=== PATIENT | female | born 1930 | race Caucasian/White ===

== ENCOUNTER → 2016-12-28 | Outpatient (REF) | payer MEDICARE ==
[2016-12-28 13:19] LABS: TOTAL PROTEIN 7.5 GM/DL (6.4-8.2)
[2016-12-29 10:15] LABS: FREE KAPPA LIGHT CHAINS SERUM 42.31 mg/L (3.30-19.40); FREE LAMBDA LIGHT CHAINS SERUM 19.47 mg/L (5.71-26.30); KAPPA/LAMBDA RATIO SERUM 2.17 (0.26-1.65)
[2016-12-30 10:05] LABS: ALBUMIN 3.93 GM/DL (3.29-5.55); ALBUMIN % 52.4 % (55.8-66.1); GAMMA GLOBULIN % 24.1 % (11.1-18.8)
== END ==
LOC: M LAB REF 12:33
PROVIDERS: ATTEND Internal Medicine Medical Oncology
DX: D47.2 Monoclonal gammopathy (principal)

== ENCOUNTER → 2017-01-11 | Outpatient (REF) | payer MEDICARE | LOC: M LAB REF 16:26 | PROVIDERS: ATTEND Internal Medicine | DX: M10.9 Gout, unspecified (principal) ==

== ENCOUNTER → 2017-05-16 | Outpatient (REF) | payer MEDICARE | LOC: M LAB REF 18:14 | PROVIDERS: ATTEND Internal Medicine | DX: M10.9 Gout, unspecified (principal) ==

== ENCOUNTER → 2017-06-16 | Outpatient (REF) | payer MEDICARE | LOC: M LAB REF 14:11 | PROVIDERS: ATTEND Internal Medicine | DX: N39.0 Urinary tract infection, site not specified (principal) ==

== ENCOUNTER → 2017-06-30 | Outpatient (REF) | payer MEDICARE ==
[2017-06-30 14:32] LABS: IMMUNOGLOBULIN G 1830 MG/DL (681-1648); IMMUNOGLOBULIN M 104 MG/DL (40-230); TOTAL PROTEIN 7.2 GM/DL (6.4-8.2)
[2017-07-03 00:09] LABS: FREE KAPPA LIGHT CHAINS SERUM 24.3 mg/L (3.3-19.4); FREE LAMBDA LIGHT CHAINS SERUM 13.3 mg/L (5.7-26.3); KAPPA/LAMBDA RATIO SERUM 1.83 (0.26-1.65)
[2017-07-05 11:56] LABS: ALBUMIN 3.82 GM/DL (3.29-5.55); GAMMA GLOBULIN % 24.2 % (11.1-18.8)
== END ==
LOC: M LAB REF 12:38
PROVIDERS: ATTEND Internal Medicine Medical Oncology
DX: N76.0 Acute vaginitis (principal)

== ENCOUNTER → 2017-07-13 | Outpatient (REF) | payer MEDICARE ==
[2017-07-14 13:34] LABS: PERCENT SATURATION 18.6 % (13.2-45.0)
== END ==
LOC: M LAB REF 12:15
PROVIDERS: ATTEND Internal Medicine
DX: D64.9 Anemia, unspecified (principal)

== ENCOUNTER → 2017-09-28 | Outpatient (REF) | payer MEDICARE ==
[2017-09-28 11:28] LABS: BASO % 0.9 % (0.0-1.0); EOS # 0.1 10^3/uL (0.0-0.50); EOS % 1.5 % (0.0-3.0); IMMATURE GRANULOCYTE % 0.2 % (0-0); LYMPH # 1.8 10^3/uL (1.5-4.5); LYMPH % 39.1 % (24.0-44.0); MEAN CORPUSCULAR HGB CONC 32.3 g/dl (32.0-36.5); MEAN CORPUSCULAR VOLUME 98.9 fl (80.0-96.0); MONO # 0.6 10^3/uL (0.0-0.8); MONO % 13.2 % (0.0-5.0); NEUTROPHILS % 45.1 % (36.0-66.0); PLATELET COUNT, AUTOMATED 153 10^3/uL (150-450); RED CELL DISTRIBUTION WIDTH 14.1 % (11.5-14.5); WHITE BLOOD COUNT 4.5 10^3/uL (4.0-10.0)
[2017-09-28 12:06] LABS: BLOOD UREA NITROGEN 17 MG/DL (7-18)
[2017-09-28 12:06] LABS: ALBUMIN 3.5 GM/DL (3.2-5.2); ALKALINE PHOSPHATASE 75 U/L (45-117); ALT/SGPT 21 U/L (12-78); AST/SGOT 21 U/L (7-37); CREATININE FOR GFR 0.89 MG/DL (0.55-1.02); GLOMERULAR FILTRATION RATE > 60.0 (>32)
[2017-09-28 12:09] LABS: ERYTHROCYTE SEDIMENTATION RATE 25 mm/hr (0-42)
== END ==
LOC: M LABDRAWC 11:09
DX: M05.79 Rheumatoid arthritis with rheumatoid factor of multiple sites without organ or systems involvement (principal)
CPT/HCPCS: 84460

== ENCOUNTER → 2017-12-22 | Outpatient (REF) | payer MEDICARE ==
[2017-12-22 14:47] LABS: MAU/CREAT RATIO 66.6 MCG/MG (0.0-30.0)
[2017-12-22 14:53] LABS: NT-PRO BNP 439 PG/ML (<450)
[2017-12-22 14:53] LABS: IMMUNOGLOBULIN G 1920 MG/DL (681-1648); IMMUNOGLOBULIN M 123 MG/DL (40-230); TOTAL PROTEIN 7.4 GM/DL (6.4-8.2)
[2017-12-26 14:21] LABS: ALBUMIN % 52.2 % (55.8-66.1); ALPHA-1-GLOBULIN % 4.2 % (2.9-4.9); ALPHA-2-GLOBULINS % 9.5 % (7.1-11.8); BETA-1-GLOBULINS % 5.1 % (4.7-7.2)
[2017-12-26 14:22] LABS: ALBUMIN 3.86 GM/DL (3.29-5.55); ALPHA-1-GLOBULINS 0.31 GM/DL (0.17-0.41); BETA-1-GLOBULINS 0.38 GM/DL (0.28-0.60); GAMMA GLOBULINS 1.85 GM/DL (0.65-1.58)
== END ==
LOC: M LAB REF 13:05
DX: D47.2 Monoclonal gammopathy (principal)
CPT/HCPCS: 84165

== ENCOUNTER → 2018-06-27 | Outpatient (REF) | payer MEDICARE ==
[2018-06-27 15:29] LABS: CREATININE, URINE 70.3 MG/DL; MALB URINE SIEMENS 39.2 MG/L
[2018-06-27 15:31] LABS: MAU/CREAT RATIO 55.8 MCG/MG (0.0-30.0)
[2018-06-27 22:59] LABS: IMMUNOGLOBULIN G 1860 MG/DL (681-1648); IMMUNOGLOBULIN M 112 MG/DL (40-230); TOTAL PROTEIN 7.3 GM/DL (6.4-8.2)
[2018-06-27 22:59] LABS: NT-PRO BNP 461 PG/ML (<450)
[2018-06-29 11:12] LABS: ALBUMIN 3.84 GM/DL (3.29-5.55); ALBUMIN % 52.6 % (55.8-66.1); ALPHA-1-GLOBULIN % 4.2 % (2.9-4.9); ALPHA-1-GLOBULINS 0.31 GM/DL (0.17-0.41); ALPHA-2-GLOBULINS 0.65 GM/DL (0.42-0.99); ALPHA-2-GLOBULINS % 8.9 % (7.1-11.8); BETA-1-GLOBULINS 0.37 GM/DL (0.28-0.60); BETA-1-GLOBULINS % 5.1 % (4.7-7.2); BETA-2-GLOBULINS % 4.1 % (3.2-6.5); GAMMA GLOBULIN % 25.1 % (11.1-18.8); GAMMA GLOBULINS 1.83 GM/DL (0.65-1.58)
== END ==
LOC: M LAB REF 13:04
DX: D47.2 Monoclonal gammopathy (principal); D64.81 Anemia due to antineoplastic chemotherapy
CPT/HCPCS: 84165

== ENCOUNTER → 2018-07-12 | Outpatient (REF) | payer MEDICARE ==
[2018-07-12 18:29] LABS: URIC ACID 5.1 MG/DL (2.6-6.0)
[2018-07-13 15:20] LABS: FERRITIN 124 NG/ML (8-252); IRON (FE) 113 UG/DL (50-170); PERCENT SATURATION 45.2 % (13.2-45.0); TOTAL IRON BINDING CAPACITY 250 UG/DL (250-450)
== END ==
LOC: M LAB REF 17:13
DX: M10.9 Gout, unspecified (principal); D50.9 Iron deficiency anemia, unspecified
CPT/HCPCS: 83550

== ENCOUNTER → 2018-10-12 | Outpatient (REF) | payer MEDICARE ==
[~2018-10-12] MED LIST: ASPI81CH32 PO; D400400C PO; FOLI800C PO; FURO20TA2 PO; LOSA100T50 PO; METH2.5T48 PO; MULTTAB PO
[2018-10-12 11:38] LABS: BASO # 0.1 10^3/uL (0.0-0.2); BASO % 1.2 % (0.0-1.0); EOS % 0.9 % (0.0-3.0); HEMATOCRIT 34.4 % (36.0-47.0); HEMOGLOBIN 11.4 g/dl (12.0-15.5); LYMPH # 1.4 10^3/uL (1.5-4.5); LYMPH % 32.8 % (24.0-44.0); MEAN CORPUSCULAR HEMOGLOBIN 32.5 pg (27.0-33.0); MEAN CORPUSCULAR HGB CONC 33.1 g/dl (32.0-36.5); MONO # 0.4 10^3/uL (0.0-0.8); MONO % 9.5 % (0.0-5.0); NEUTROPHILS # 2.4 10^3/uL (1.8-7.7); NEUTROPHILS % 55.1 % (36.0-66.0); PLATELET COUNT, AUTOMATED 171 10^3/uL (150-450); RED BLOOD COUNT 3.51 10^6/uL (4.00-5.40); WHITE BLOOD COUNT 4.3 10^3/uL (4.0-10.0)
[2018-10-12 11:43] LABS: ALBUMIN 3.6 GM/DL (3.2-5.2); ALT/SGPT 26 U/L (12-78); BILIRUBIN,TOTAL 0.7 MG/DL (0.2-1.0); BLOOD UREA NITROGEN 18 MG/DL (7-18); C REACTIVE PROTEIN QUANTITATIV < 0.30 MG/DL (0.00-0.30); CARBON DIOXIDE LEVEL 29 MEQ/L (21-32); CHLORIDE LEVEL 103 MEQ/L (98-107); CREATININE FOR GFR 0.91 MG/DL (0.55-1.30); GLOMERULAR FILTRATION RATE > 60.0 (>32); GLUCOSE, FASTING 94 MG/DL (70-100); POTASSIUM SERUM 4.5 MEQ/L (3.5-5.1); SODIUM LEVEL 136 MEQ/L (136-145); TOTAL PROTEIN 7.4 GM/DL (6.4-8.2); URIC ACID 4.6 MG/DL (2.6-6.0)
[2018-10-12 12:02] LABS: ERYTHROCYTE SEDIMENTATION RATE 21 mm/hr (0-42)
[2018-10-14 00:09] LABS: ANA (HEP2) Negative (.); CYCLIC CITRULLINATED PEPTIDE 9 units (0-19)
== END ==
LOC: M SFHCPLAZ 09:11
PROVIDERS: ATTEND Internal Medicine Rheumatology
DX: M06.9 Rheumatoid arthritis, unspecified (principal)

== ENCOUNTER → 2018-10-12 | Outpatient (CLI) | payer MEDICARE ==
--- NOTE | 2018-10-12 10:36 | REP ---
PARTIAL LUMBAR SPINE SERIES: Three views. HISTORY: Osteoarthritis and rheumatoid arthritis. Comparison imaging is from November 13, 2015. FINDINGS: There is a levoconvex rotoscoliotic curve, which is slightly more prominent than then on the 2016 radiographs. Diffuse osteopenia is noted. Lumbar vertebral body heights are preserved. There is a degenerative grade 1 11 mm L4-5 spondylolisthesis. This has increased from 9 mm in 2016. There are degenerative disc changes at the L4-5 along with L5-S1, L3-4, L2-3 and L1-2. Degenerative disc disease is seen in the visualized lower thoracic spine as well. Osteoarthritic facet hypertrophy is noted bilaterally at L4-5, L5-S1 and L3-4. Vascular calcification is visible in a normal caliber aorta. Sacrum and SI joints are intact. IMPRESSION: Scoliosis and degenerative spondylosis changes as above including a 11 mm grade 1 L4-5 degenerative spondylolisthesis. This has become more pronounced than on the 2016 prior study. There is diffuse osteoporosis. Electronically Signed by Trae Hauser MD 10/12/2018 10:51 A
--- NOTE | 2018-10-12 10:50 | REP ---
BILATERAL WRIST RADIOGRAPHS: Eight views. HISTORY: Rheumatoid arthritis and osteoarthritis. No comparison imaging. FINDINGS: There is diffuse osteoporosis. There is moderate osteoarthritic narrowing, sclerosis and spur formation at the left 1st carpometacarpal articulation. Mild osteoarthritic changes are seen at the 1st MCP and IP joints on the left . No acute erosive changes seen. On the right, there is severe osteoarthritic narrowing and spur formation and sclerosis at the 1st carpometacarpal articulation. There is also osteoarthritic narrowing of the articulation between the navicula and the greater multangular. Mild radiocarpal spurring is noted on the right. There is IP joint spurring of the right thumb. No erosive changes seen. IMPRESSION: Bilateral osteoarthritic changes. Diffuse osteoporosis. Electronically Signed by Trae Hauser MD 10/12/2018 10:52 A
--- NOTE | 2018-10-12 11:15 | REP ---
Bilateral hand radiographs: Eight views. History: Osteoarthritis and rheumatoid arthritis. Findings: Right hand radiographs demonstrate diffuse osteopenia. Osteoarthritic changes are seen at the wrist as described in the wrist radiograph. There is osteoarthritic spurring involving the PIP joints of each of the fingers. Erosive osteoarthritic changes are seen at the DIP joint of the index, long, and ring fingers and minimal spurring is seen at the DIP joint and PIP joint of the small finger. There is mild apex ulnar angulation at the DIP joint of the index finger. There is no discernible ulnar deviation at the MCPs. Left-sided hand views demonstrate diffuse osteopenia. There is osteoarthritic joint space narrowing and spur formation at the DIP joints of the fingers. Erosive osteoarthritic changes are seen at the DIP joint of the index and small finger on the left hand. There is soft tissue swelling about these two articulations. Impression: Diffuse osteoporosis. Erosive osteoarthritic changes. Electronically Signed by Trae Hauser MD 10/12/2018 01:02 P
== END ==
LOC: M SMT 09:55
PROVIDERS: ATTEND Internal Medicine Rheumatology
DX: M85.841 Other specified disorders of bone density and structure, right hand (principal); M19.041 Primary osteoarthritis, right hand; M25.741 Osteophyte, right hand; M25.742 Osteophyte, left hand; M85.842 Other specified disorders of bone density and structure, left hand; M19.042 Primary osteoarthritis, left hand; M19.031 Primary osteoarthritis, right wrist; M19.032 Primary osteoarthritis, left wrist; M25.731 Osteophyte, right wrist; M25.732 Osteophyte, left wrist; M43.16 Spondylolisthesis, lumbar region; M51.86 Other intervertebral disc disorders, lumbar region; M51.84 Other intervertebral disc disorders, thoracic region; M06.9 Rheumatoid arthritis, unspecified
CPT/HCPCS: 36415; 72100; 73110; 73130; 80053; 84550; 85025; 85652; 86038; 86140; 86200; 86431; G0463

== ENCOUNTER 2018-12-26 09:52 | Outpatient (RCR) | payer MEDICARE ==
[2018-07-03 10:14] VITALS: BP 183/69
--- NOTE | 2018-07-04 09:47 | MEDONC ---
MEDICAL ONCOLOGY FOLLOWUP VISIT: DATE OF SERVICE: 07/03/2018 Rosita is seen today by VADIM Ludwig with Dr. Dahiana Elizabeth the supervising physician. 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 INTERVAL HISTORY: Rosita presents today for a 6-month scheduled followup visit. She is accompanied by her granddaughter. She reports no major interval events since we saw her last. No diminished appetite or unintended weight loss. No new bone pain. As previously documented, for severe kyphosis she is has followed with Dr. Javy Hernandez of the orthopedic group. For a history of rheumatoid arthritis, she is followed by [facility] in [place]. Rosita is on methotrexate 4 tablets p.o. every week on Tuesday. Most recent blood work dated 06/27/2018 includes a CBC that is stable. White blood cell count differential and platelets are normal. Rosita has chronic mild stable anemia, current hemoglobin 11.1, hematocrit 34.2. Chemistries also unremarkable, creatinine minimally elevated at 1.12 (stable). No hypercalcemia. Beta-2 microglobulins also relatively stable at 3.4 mg/L. IgG elevated at 1860. IgA and IgM within normal parameters. SPEP showing a M-spike of 1.40 grams per dilution, previously 1.33 on SPEP from December 2017. NT/pro-BNP also minimally elevated of 461, previously within normal parameters. At present, Rosita reports feeling overall well. ECOG performance status is 0-1, limited only by age. At present, she denies any new numbness or tingling in her hands, feet or chin area. No new lumps or bumps or rashes. No shortness of breath, chest pain, headaches, fevers, chills or unintended weight loss. REVIEW OF SYSTEMS: Pertinent positives and negatives as above. Remainder of 12 system review is negative. PHYSICAL EXAMINATION: Weight is 66 kg, temperature 97.0, pulse 57, respirations 18, BP 183/69, O2 sat 98% at rest on room air. GENERAL: Exam reveals a very pleasant, older female who is clinically stable and in no acute distress. She gets up on the exam table without assistance. HEENT: No scleral icterus. Oral pharynx, oral mucous membranes normal. Conjunctivae normal. No thyroid enlargement or nodule. No jugular venous distention. Neck supple. Carotid upstrokes 1+, no bruits. Fundi normal bilaterally. RESPIRATORY: Lungs clear bilaterally to auscultation and percussion. No rales, rhonchi, or wheezing. CARDIOVASCULAR: PMI 5th left intercostal space, midline. S1, S2 normal. No S3, S4 or murmurs. Regular rhythm. Femoral, dorsalis pedis pulses 2+ bilaterally. LYMPHATICS: No palpable lymphadenopathy. ABDOMEN: Soft, nontender. Bowel sounds normal. No tenderness, guarding, or rebound. No palpable masses or hepatosplenomegaly. MUSCULOSKELETAL: No focal skeletal tenderness to percussion. No joint swelling, warmth, tenderness, or erythema. SKIN: No rash, ecchymosis, or petechiae. Normal turgor. EXTREMITIES: No edema, clubbing, cyanosis. No thigh or calf tenderness. Normal range of motion. LABORATORY DATA: As above. IMPRESSION: Rosita is a darin, 88-year-old female with IgG kappa MGUS. She has chronic normocytic anemia, which is stable and most likely suspected etiology is the methotrexate taken for her rheumatoid arthritis. There is no progression of cytopenias. Her MGUS is overall stable to date. PLAN: 1. Continue every 6 months followup in this patient with MGUS, but on a cytotoxic agent, which can cause pancytopenia. 2. Rosita will have complete blood work including all protein studies, CBC and CMP 1 week prior to her next 6 months' visit. 3. The patient knows to contact us in the interim with any new symptoms, questions or problems. Reviewed by Raine Maria NP 07/04/2018 03:34 P Electronically Signed by Dahiana Elizabeth MD 07/06/2018 10:23 A DD: Raine Maria NP 07/03/2018 11:10 A DT: [email or web address] 07/04/2018 09:27 A CC: [facility] MD Radha Mustafa MD
[~2018-12-26] VITALS: Ht 144.8 cm; Wt 66.0 kg
[~2018-12-26 09:52] MED LIST changes: -ASPI81CH32 PO; +ASPI81CH33 PO
[2018-12-26 10:26] LABS: HEMATOCRIT 36.5 % (36.0-47.0); HEMOGLOBIN 11.7 g/dl (12.0-15.5); LYMPH % 33.6 % (24.0-44.0); MEAN CORPUSCULAR HEMOGLOBIN 32.5 pg (27.0-33.0); MEAN CORPUSCULAR HGB CONC 32.1 g/dl (32.0-36.5); MEAN CORPUSCULAR VOLUME 101.5 fl (80.0-96.0); NEUTROPHILS # 2.3 10^3/uL (1.8-7.7); NEUTROPHILS % 52.5 % (36.0-66.0); RED BLOOD COUNT 3.6 10^6/uL (4.00-5.40); WHITE BLOOD COUNT 4.4 10^3/uL (4.0-10.0)
[2018-12-26 11:06] LABS: ALBUMIN 4.2 GM/DL (3.5-5.2); CALCIUM LEVEL 9.1 MG/DL (8.5-10.2); CREATININE FOR GFR 1.03 MG/DL (0.60-1.10); GLOMERULAR FILTRATION RATE 54.1 (>32); POTASSIUM SERUM 4.3 MMOL/L (3.5-5.1); TOTAL PROTEIN 7.5 GM/DL (6.4-8.3)
[2018-12-26 11:14] LABS: IMMUNOGLOBULIN G 1980 MG/DL (681-1648); TOTAL PROTEIN 7.7 GM/DL (6.4-8.2)
[2018-12-27 10:24] LABS: ALBUMIN 4.02 GM/DL (3.29-5.55); ALBUMIN % 52.2 % (55.8-66.1); ALPHA-1-GLOBULIN % 4.4 % (2.9-4.9); ALPHA-1-GLOBULINS 0.34 GM/DL (0.17-0.41); ALPHA-2-GLOBULINS 0.72 GM/DL (0.42-0.99); ALPHA-2-GLOBULINS % 9.4 % (7.1-11.8); BETA-1-GLOBULINS 0.39 GM/DL (0.28-0.60); BETA-2-GLOBULINS 0.33 GM/DL (0.19-0.55); BETA-2-GLOBULINS % 4.3 % (3.2-6.5); GAMMA GLOBULIN % 24.7 % (11.1-18.8)
[2018-12-28 08:20] LABS: BETA 2 MICROGLOBULIN 3.5 mg/L (0.6-2.4); FREE KAPPA LIGHT CHAINS SERUM 34.4 mg/L (3.3-19.4); FREE LAMBDA LIGHT CHAINS SERUM 13.7 mg/L (5.7-26.3); KAPPA/LAMBDA RATIO SERUM 2.51 (0.26-1.65)
== END 2018-12-26 10:13 | disposition home or self-care (01) ==
LOC: M ONCM 09:52
PROVIDERS: ATTEND Internal Medicine Medical Oncology
DX: D47.2 Monoclonal gammopathy (principal); D64.81 Anemia due to antineoplastic chemotherapy
CPT/HCPCS: 36415; 80053; 82232; 82784; 83883; 84165; 85027; G0463